=== PATIENT | female | born 1995 | race African-American/Black ===

== ENCOUNTER 2023-12-22 08:08 | Emergency (ER) | payer BC ==
[~2023-12-22] VITALS: Ht 175.3 cm; Wt 110.0 kg
[2023-12-22 08:12] VITALS: BP 130/71; PULSE 78; RESP 18; TEMP 98.1; O2SAT 100
[2023-12-22] MEDS: HYDROCODONE/ACETAMINOPHEN 5/325MG TABLET PO ONE (09:39)
[2023-12-22] MEDS: KETOROLAC 30MG/ML VIAL IM ONE (09:39)
[2023-12-22] MEDS ORDERED: IBUP-2030 MT (10:34)
== END 2023-12-22 13:06 | disposition home or self-care (01) ==
LOC: ER 08:08
DX: S89.91XA Unspecified injury of right lower leg, initial encounter (principal); F41.9 Anxiety disorder, unspecified; F32.9 Major depressive disorder, single episode, unspecified; W18.39XA Other fall on same level, initial encounter; Y93.89 Activity, other specified; Y92.89 Other specified places as the place of occurrence of the external cause; Y99.8 Other external cause status
CPT/HCPCS: 81025; 73562; 96372; 99283; J1885; Z7610